=== PATIENT | female | born 1970 | race American Indian/Alaskan Native ===

== ENCOUNTER 2016-09-08 08:32 | Outpatient (CLI) | payer OTHER ==
--- NOTE | 2016-09-08 15:54 | Mammography Report ---
BILATERAL DIGITAL SCREENING MAMMOGRAM with CAD: 09/08/16 08:32:00 CLINICAL: Routine screening.History of a benign left biopsy. COMPARISON:11/28/11 FINDINGS: The breasts are almost entirely fatty.Stable left outer mass with a biopsy clip. No new ass, architectural distortion or suspicious calcifications. IMPRESSION: No mammographic evidence of malignancy. BI-RADS CATEGORY: 2 -- Benign RECOMMENDATION: Routine mammographic screening in one year. COMMENT: Patient follow-up letters are generated by our [employer] application.
== END 2016-09-08 08:33 | disposition home or self-care (01) ==
LOC: MAMMO 08:32
DX: Z12.31 Encounter for screening mammogram for malignant neoplasm of breast (principal)
CPT/HCPCS: 77067; G0202

== ENCOUNTER 2016-10-16 07:11 | Day surgery (SDC) | payer OTHER ==
[2016-10-16] MEDS ORDERED: DIPRIVAN 10 MG/ML IV ONE ×2 (07:37)
[2016-10-16] MEDS ORDERED: NACL 0.9% 1000 ML 1,000 ML IV SCH (08:00)
--- NOTE | 2016-10-16 08:05 | Anesthesia Consultation ---
Anesthesia Consult and Med Hx Date of service: 10/16/16 - Airway Anesthetic Teeth Evaluation: Caps (bottom left) ROM Head & Neck: Adequate Mental/Hyoid Distance: Adequate Mallampati Class: Class II Intubation Access Assessment: Probably Good - Pulmonary Exam CTA: Yes - Cardiac Exam Cardiac Exam: RRR - Pre-Operative Health Status ASA Pre-Surgery Classification: ASA2 Proposed Anesthetic Plan: MAC - Pulmonary Hx Smoking: Yes (2-3 black and milds) - Cardiovascular System Hx Hypertension: Yes - Gastrointestinal Hx Gastroesophageal Reflux Disease: Yes - Endocrine Hx Insulin Dependent Diabetes: No - Hematic Hx Anemia: No Hx Sickle Cell Disease: No - Other Systems Hx Alcohol Use: No Hx Substance Use: No Hx Cancer: No Hx Obesity: No
--- NOTE | 2016-10-16 08:05 | Anesthesia Day of Surgery ---
Anesthesia Day of Surgery - Day of Surgery Patient Examined: Yes Patient H&P Reviewed: Yes Patient is NPO: Yes
[2016-10-16] MEDS ORDERED: WATER FOR IRRIG STERILE IR ONE (08:15)
[2016-10-16] MEDS ORDERED: ROBINUL ONE (09:14)
[2016-10-16] MEDS ORDERED: XYLOCAINE MPF 2% ONE (09:14)
--- NOTE | 2016-10-16 09:44 | Operative Report ---
Operative Report Operative Report: Date of procedure: 10/16/2016 Procedure: Esophagogastroduodenoscopy with multiple mucosal biopsies. Attending physician: Victoriano Lam MD Soil Science Professor: Victoriano Lam MD Indication: Patient is a 46-year-old female who presented with a history of epigastric pain indigestion and heartburn. Also has a history of dysphagia. An upper endoscopy is done to assess patient so that treatment may be directed based on the findings. Consent: Informed consent was obtained after advising the patient and family regarding nature of this procedure, its indications, potential benefits as well as possible complications including but not limited to bleeding perforation and adverse reaction to medication, infection as well as other cardiopulmonary complications. An informed written and verbal consent was then obtained after due opportunity was provided for questions and answers. Monitoring: Patient was monitored continuously with pulse oximetry and electrocardiographic recordings as well as blood pressure recordings. Vital signs remained stable throughout this procedure with no untoward events. Preoperative assessment: Patient was assessed immediately prior to this procedure for capacity to tolerate monitored anesthesia care and moderate sedation as well as general anesthesia. Patient's ASA classification is 2, Mallampati class is 2, Hyomental distance is 3. Instrument: Precysen video endoscope Medications: Propofol given intravenously in divided doses. For details please refer to anesthesia records. Description of procedure: Patient was placed in the left lateral decubitus position after achieving sedation, the endoscope was introduced into the esophagus under direct vision. It was then advanced beyond the esophagus into the stomach and then beyond the stomach into the duodenum and to the second portion of the duodenum. It was subsequently withdrawn with careful inspection of all mucosal surfaces with the following findings. Findings: Patient had mild erosive esophagitis involving the distal esophagus. The Z line was irregular. There was a 1-2 cm sliding hiatal hernia seen on entry into the stomach. There was erythema and edema seen in the gastric antrum and body with surrounding erosions. Biopsies were obtained from the gastric antrum to rule out gastritis. The duodenum was normal to second portion. Impression: Mild erosive esophagitis. Mucosal changes suggestive of gastritis. Hiatal hernia Plan: Continue treatment with proton pump inhibitors. Follow antireflux measures. Additional decisions may be made depending on the pathology report.
[2016-10-16 10:03] VITALS: BP 104/73
--- NOTE | 2016-10-16 10:23 | Discharge Summary ---
Short Stay Discharge Plan Activity: advance as tolerated Weight Bearing Status: Weight Bear as Tolerated Diet: regular Additional Instructions: Post Sedation D/C Instructions When you return home you may resume your regular diet unless otherwise directed. -Go directly home from the hospital and rest quietly. You may resume normal activities tomorrow. -Do NOT drive, return to work, operate any machinery or make any important personal or business decisions today. -Do NOT drink any alcohol or take nerve or sleeping drugs. They add to the effects of the medicine still present in your body. Follow up with Dr. Lam to obtain pathology results and treatment plan. Continue protein pump inhibitors and anti-reflux measures. Follow up with: KAMAR COCHRAN [Primary Care Provider] - 7 Days
--- NOTE | 2016-10-16 10:36 | Post Anesthesia Evaluation ---
- Post Anesthesia Evaluation Patient Participated: Yes Airway Patent: Yes Stable Respiratory Function: Yes Nausea/Vomiting: No Temp > 96.8F: Yes Pain Manageable: Yes Adequeate Hydration: Yes Anesthesia Complications: No Block Receding Appropriately: Not Applicable Patient on Ventilator: No
== END 2016-10-16 07:12 | disposition home or self-care (01) ==
LOC: GIO 07:11
PROVIDERS: ATTEND Internal Medicine Gastroenterology
DX: K20.9 Esophagitis, unspecified (principal); K44.1 Diaphragmatic hernia with gangrene; I10 Essential (primary) hypertension; F17.210 Nicotine dependence, cigarettes, uncomplicated; K31.89 Other diseases of stomach and duodenum
CPT/HCPCS: 43239; 81025; 88305; 88342; J2704; J7030

== ENCOUNTER 2016-10-20 10:56 | Day surgery (SDC) | payer OTHER ==
[2016-10-20] MEDS ORDERED: NACL 0.9% 1000 ML 1,000 ML IV SCH (13:00)
[2016-10-20] MEDS ORDERED: DIPRIVAN 10 MG/ML IV ONE ×2 (18:24→18:47)
--- NOTE | 2016-10-20 18:50 | Operative Report ---
Operative Report Operative Report: Date of procedure: 10/20/2016 Procedure: Colonoscopy Attending physician: Victoriano Lam MD Process Inspector: Victoriano Lam MD Indication: Patient is a 46-year-old female who presented for colonoscopic assessment because of family history of colon cancer. Her father had colon cancer. This procedure is done to evaluate patient so that treatment may be directed based on the findings. Consent: Informed consent was obtained after advising the patient and family regarding nature of this procedure, its indications, potential benefits as well as possible complications including but not limited to bleeding perforation and adverse reaction to medication, infection as well as other cardiopulmonary complications. An informed written and verbal consent was then obtained after due opportunity was provided for questions and answers. Monitoring: Patient was monitored continuously with pulse oximetry and electrocardiographic recordings as well as blood pressure recordings. Vital signs remained stable throughout this procedure with no untoward events. Preoperative assessment: Patient was assessed immediately prior to this procedure for capacity to tolerate monitored anesthesia care and moderate sedation as well as general anesthesia. Patient's ASA classification is 2, Mallampati class is 2, Hyomental distance is 3. Instrument: Vimblyn videocolonoscope Medications: Propofol given intravenously in divided doses for details please refer to anesthesia records. Description of procedure: Patient was placed in the left lateral decubitus position after achieving sedation, a digital rectal examination was performed following which the colonoscope was introduced into the anal verge and advanced to the cecum which was identified by the cecal valve, the appendiceal orifice, as well as by the cecal strap and direct transillumination. The colonoscope was subsequently withdrawn with careful inspection of all mucosal surfaces. Patient tolerated this procedure well and was subsequently taken to the recovery room. The following findings were noted. Findings: Patient had liquid stool in sections of the colon which is fairly easily irrigated. There were no mucosal abnormalities seen. On the retroflex view at the anal verge, patient had internal hemorrhoids. Impression: Internal hemorrhoids. Retained stool. Plan: High-fiber diet. Repeat colonoscopy in 5 years because of family history of colon cancer.
--- NOTE | 2016-10-20 18:51 | Discharge Summary ---
Short Stay Discharge Plan Activity: advance as tolerated Weight Bearing Status: Weight Bear as Tolerated Diet: regular Follow up with: KAMAR COCHRAN [Primary Care Provider] - 7 Days
[2016-10-20 19:26] VITALS: BP 110/78
--- NOTE | 2016-10-20 19:34 | Anesthesia Consultation ---
Anesthesia Consult and Med Hx Date of service: 10/20/16 - Airway Anesthetic Teeth Evaluation: Good ROM Head & Neck: Adequate Mental/Hyoid Distance: Adequate - Pre-Operative Health Status ASA Pre-Surgery Classification: ASA2 Proposed Anesthetic Plan: MAC - Pulmonary Hx Smoking: Yes (2-3 black and milds) - Cardiovascular System Hx Hypertension: Yes - Gastrointestinal Hx Gastroesophageal Reflux Disease: Yes - Endocrine Hx Insulin Dependent Diabetes: No - Hematic Hx Anemia: Yes Hx Sickle Cell Disease: No - Other Systems Hx Alcohol Use: No Hx Substance Use: No Hx Cancer: No Hx Obesity: No - Additional Comments Anesthesia Medical History Comments: NAC
== END 2016-10-20 10:57 | disposition home or self-care (01) ==
LOC: GIO 10:56
PROVIDERS: ATTEND Internal Medicine Gastroenterology
DX: K64.8 Other hemorrhoids (principal); M19.90 Unspecified osteoarthritis, unspecified site; I10 Essential (primary) hypertension; F17.210 Nicotine dependence, cigarettes, uncomplicated; Z79.899 Other long term (current) drug therapy; Z72.89 Other problems related to lifestyle; Z80.0 Family history of malignant neoplasm of digestive organs
CPT/HCPCS: 45378; 81025; J2704; J7030

== ENCOUNTER 2017-07-07 10:42 | Inpatient (IN) | payer OTHER ==
[2017-07-06 09:58] LABS: Basophils % (Auto) 0.5 % (0.0-1.8); Eosinophils % (Auto) 4.1 % (0.0-4.3); Hematocrit 44.6 % (30.3-42.9); Hemoglobin 14.9 gm/dl (10.1-14.3); Mean Corpuscular HGB Conc 33 % (30-34); Mean Corpuscular Hemoglobin 28 pg (28-32); Mean Corpuscular Volume 82 fl (79-97); Platelet Count 299 K/mm3 (140-440); Red Blood Count 5.43 M/mm3 (3.65-5.03); Red Cell Distribution Width 14.5 % (13.2-15.2)
[2017-07-06 10:17] LABS: Anion Gap 20 mmol/L; BUN/Creatinine Ratio 18; Blood Urea Nitrogen 14 mg/dL (7-17); Calcium 9.1 mg/dL (8.4-10.2); Carbon Dioxide 22 mmol/L (22-30); Chloride 101.2 mmol/L (98-107); Glucose 93 mg/dL (65-100); Potassium 4.5 mmol/L (3.6-5.0); Sodium 139 mmol/L (137-145)
--- NOTE | 2017-07-06 10:21 | Anesthesia Consultation ---
Anesthesia Consult and Med Hx Date of service: 07/06/17 - Airway Anesthetic Teeth Evaluation: Good ROM Head & Neck: Adequate Mental/Hyoid Distance: Adequate Mallampati Class: Class II Intubation Access Assessment: Good - Pulmonary Exam CTA: Yes - Cardiac Exam Cardiac Exam: RRR - Pre-Operative Health Status ASA Pre-Surgery Classification: ASA2 Proposed Anesthetic Plan: General Nerve Block: TAP - Pulmonary Hx Smoking: Yes ("social" smoker) - Cardiovascular System Hx Hypertension: Yes - Central Nervous System Hx Psychiatric Problems: Yes - Gastrointestinal Hx Gastroesophageal Reflux Disease: Yes - Endocrine Hx Insulin Dependent Diabetes: No - Hematic Hx Anemia: Yes Hx Sickle Cell Disease: No - Other Systems Hx Alcohol Use: Yes (occas) Hx Substance Use: No Hx Cancer: No Hx Obesity: No
[2017-07-07] MEDS ORDERED: VERSED IV NR (11:00)
[2017-07-07] MEDS ORDERED: SUBLIMAZE IV ONE (11:01)
[2017-07-07] MEDS ORDERED: LACTATED RINGERS 1,000 ML ONE ×3 (11:52→15:17)
[2017-07-07] MEDS ORDERED: TRANSDERM-SCOP TD NR (12:00)
[2017-07-07] MEDS ORDERED: PEPCID PO NR (12:00)
[2017-07-07] MEDS ORDERED: NEURONTIN PO NR (12:00)
--- NOTE | 2017-07-07 12:21 | History and Physical Report ---
History of Present Illness Date of examination: 07/07/17 Chief complaint: Symptomatic uterine fibroids History of present illness: Pt is a 46yo BF LMP 06/18/17 presents for surgical evaluation and treatment of heavy irregular menstrual cycles thought to be due to uterine fibroids. Pelvic u/s showed an enlarged uterus 14.0 x 8.2 x 7.3cm with multiple fibroids. Pt DOES NOT desire future fertility and requests a Robotic Assisted Total Hysterectomy with Ovarian conservation. Past History Past Medical History: no pertinent history Past Surgical History: cholecystectomy, other (BTL; Bartholin cyst) [employer] History: fibroids Family/Genetic History: diabetes, heart disease, hypertension, cancer Social history: no significant social history, single Medications and Allergies Allergies Allergy/AdvReac Type Severity Reaction Status Date / Time No Known Allergies Allergy Verified 07/01/17 17:34 Home Medications Medication Instructions Recorded Confirmed Last Taken Type Ibuprofen [Ibuprofen] 800 mg PO DAILY 07/06/17 07/06/17 Unknown History Losartan Potassium [Cozaar] 100 mg PO DAILY 07/06/17 07/06/17 Unknown History Omeprazole [Omeprazole] 40 mg PO DAILY 07/06/17 07/06/17 Unknown History Phentermine HCl 37.5 mg PO DAILY 07/06/17 07/06/17 07/01/17 History Active Meds: Active Medications Celecoxib (Celebrex) 200 mg PO PREOP NR Stop: 07/07/17 13:00 Last Admin: 07/07/17 11:53 Dose: 200 mg Famotidine (Pepcid) 20 mg PO PREOP NR Stop: 07/07/17 23:59 Last Admin: 07/07/17 11:53 Dose: 20 mg Gabapentin (Neurontin) 600 mg PO PREOP NR Stop: 07/07/17 23:59 Last Admin: 07/07/17 11:53 Dose: 600 mg Lactated Ringer's (Lactated Ringers) 1,000 mls @ 100 mls/hr IV DIRECT EVANS Cefazolin Sodium (Ancef/Sterile Water 2 Gm/20 Ml) 2 gm in 20 mls @ 80 mls/hr IV PREOP NR PRN Reason: Protocol Midazolam HCl (Versed) 2 mg IV PREOP NR Stop: 07/07/17 23:59 Scopolamine (Transderm-Scop) 1 each TD PREOP NR Stop: 07/10/17 11:59 Last Admin: 07/07/17 11:54 Dose: 1 each Review of Systems All systems: negative - Vital Signs Vital signs: Vital Signs Temp Pulse Resp BP 98.6 F 84 16 110/80 07/06/17 09:20 07/06/17 09:20 07/06/17 09:20 07/06/17 09:20 Temp Pulse Resp BP Pulse Ox 98.6 F 84 20 110/80 07/06/17 09:20 07/06/17 09:20 07/07/17 11:53 07/06/17 09:20 - Physical Exam Breasts: Positive: deferred Cardiovascular: Regular rate Lungs: Positive: Clear to auscultation Abdomen: Positive: normal appearance Genitourinary (Female): Positive: normal external genitalia Vagina: Positive: normal moisture Uterus: Positive: enlarged Extremities: Positive: normal Results Result Diagrams: 07/06/17 09:50 07/06/17 09:50 All other labs normal. Ultrasound: report reviewed Assessment and Plan - Patient Problems (1) Fibroid uterus Onset Date: 07/07/17 Current Visit: Yes Status: Acute Qualifiers: Uterine leiomyoma location: intramural and subserous Qualified Code(s): D25.1 - Intramural leiomyoma of uterus; D25.2 - Subserosal leiomyoma of uterus; D25.2 - Subserosal leiomyoma of uterus Plan to address problem: A: Symptomatic fibroid uterus Menorrhagia P: Admit for a Robotic Assisted Total Hysterectomy with Bilateral Salpingectomy (2) Menorrhagia with irregular cycle Onset Date: 07/07/17 Current Visit: Yes Status: Acute
[2017-07-07] MEDS ORDERED: XYLOCAINE MPF 2% ONE (12:44)
[2017-07-07] MEDS ORDERED: ZEMURON IV ONE (12:44)
[2017-07-07] MEDS ORDERED: DIPRIVAN 10 MG/ML IV ONE (12:47)
[2017-07-07] MEDS ORDERED: XYLOCAINE 1% 20 mL ONE (12:47)
[2017-07-07] MEDS ORDERED: DECADRON ONE ×2 (12:47→15:07)
[2017-07-07] MEDS ORDERED: MARCAINE 0.5% 0 ML INFILTRATI ONE (12:47)
[2017-07-07] MEDS ORDERED: CLONIDINE 1,000 MCG/10 ML VIAL EP ONE (12:47)
[2017-07-07] MEDS ORDERED: DILAUDID ONE ×2 (12:48→18:41)
[2017-07-07] MEDS ORDERED: NEOSPORIN GU IR ONE ×2 (12:56→15:06)
--- NOTE | 2017-07-07 12:56 | Anesthesia Day of Surgery ---
Anesthesia Day of Surgery - Day of Surgery Patient Examined: Yes Patient H&P Reviewed: Yes Patient is NPO: Yes
[2017-07-07] MEDS ORDERED: ANCEF/STERILE WATER 2 GM/20 ML 2 GM/20 ML SYRINGE IV NR (13:00)
[2017-07-07] MEDS ORDERED: ePHEDrine SULFATE ONE ×2 (14:45→16:08)
[2017-07-07] MEDS ORDERED: NACL 0.9% IR ONE ×2 (15:06→15:07)
[2017-07-07] MEDS ORDERED: ZOFRAN ONE (15:07)
[2017-07-07] MEDS ORDERED: ROBINUL ONE ×2 (15:13→15:14)
[2017-07-07] MEDS ORDERED: NEOSTIGMINE ONE (15:13)
[2017-07-07] MEDS ORDERED: NACL 0.9% 1000 ML 0 ML ONE (15:15)
[2017-07-07] MEDS ORDERED: MILK OF MAGNESIA PO PRN (15:37)
[2017-07-07] MEDS ORDERED: ZOFRAN IV PRN (15:37)
[2017-07-07] MEDS ORDERED: PERCOCET 5/325 PO PRN (15:37)
[2017-07-07] MEDS ORDERED: PHENERGAN PR PRN (15:37)
[2017-07-07] MEDS ORDERED: TYLENOL PO PRN (15:37)
[2017-07-07] MEDS ORDERED: NARCAN 0.4 MG/1 ML IV PRN (15:37)
[2017-07-07] MEDS ORDERED: NORCO 5/325 PO PRN (15:37)
[2017-07-07] MEDS ORDERED: SODIUM CHLORIDE FLUSH SYRINGE 10 ML IV PRN (15:37)
[2017-07-07] MEDS: TORADOL IV SCH ×2 (15:50→21:40)
[2017-07-07] MEDS ORDERED: D5LR 1,000 ML IV SCH (16:00)
[2017-07-07] MEDS ORDERED: ANCEF/NS 1 GM/50 ML 1 GM/50 ML BAG IV SCH (16:00)
[2017-07-07] MEDS ORDERED: DILAUDID IV PRN (16:03)
[2017-07-07] MEDS ORDERED: NACL 0.9% 1000 ML 1,000 ML ONE (16:07)
[2017-07-07] MEDS: DILAUDID IV PRN ×2 (16:30→16:40)
[2017-07-07] MEDS ORDERED: ePHEDrine SULFATE IV PRN (17:14)
--- NOTE | 2017-07-07 17:35 | Operative Report ---
Operative Report Operative Report: Date of procedure: 07/07/2017 Pre-operative diagnosis: 1. Symptomatic fibroid uterus 2. Menorrhagia Post-operative diagnosis: Same with extensive omental adhesions Procedure name(s): 1. Robotic-assisted total hysterectomy 2. Bilateral salpingectomy 3. Lysis of extensive omental adhesions Surgeon: Fransisco Chase MD Weight Trainer: Kacie Manning SA Anesthesia: Block followed by general endotracheal intubation by Dr. Cat EBL: 100 mls Findings: A 14-16 week size multiple myomatous uterus with omental adhesions to the anterior abdominal wall. Tubes showed evidence of previous tubal ligation bilaterally, and ovaries are normal bilaterally. Procedure: After the patient's first correctly identified she was prepped and draped in the usual sterile fashion and placed in the dorsolithotomy position. The bladder was first catheterized using Villa catheter and the speculum was placed in the vagina and the anterior lip of the cervix was grasped using a single-tooth tenaculum, and the medium Vesicare cup was placed. The tenaculum and speculum was then removed from the vagina and attention was then turned to the abdomen. The skin knife was used to make a small incision approximately 5 cm above the umbilicus through which a 12 mm trocar was placed under direct visualization. After adequate amount of abdominal insufflation visualization of the pelvic organs found the uterus to be enlarged with extensive omental adhesions to anterior abdominal wall obscuring the adnexa and the tubes showed evidence of previous tubal ligation bilaterally, and both ovaries normal bilaterally. A right lateral incision was made through which a 5 mm trocar was placed under direct visualization. A right and left paramedian incision was made through which the 8 mm trochars were placed under direct visualization. The patient was then placed in steep Trendelenburg positioning and the robot was docked on the patient's left side. After all the robotic ports were connected and adequate functioning of the robotic arms were tested the surgeon then proceeded to the console to begin the hysterectomy. First the omental adhesions were taken down using both sharp and blunt dissection, then the left round ligament was grasped, cauterized and cut, the left utero-ovarian ligaments were grasped, cauterized and cut, and the left fallopian tube also grasped, cauterized and cut along the mesosalpinx, thus freeing the left ovary from the left pelvic sidewall. The same procedure was performed on the right. The right round ligament was grasped, cauterized and cut, the right utero-ovarian ligaments were grasped, cauterized and cut, and the right fallopian tube also grasped, cauterized and cut along the mesosalpinx , thus freeing the right ovary from the right pelvic sidewall. The bladder flap was taken down anteriorly and the uterine vessels were grasped, cauterized and cut bilaterally. The cardinal ligaments were sequentially grasped, cauterized and cut down to the level of the uterosacral ligaments. At this time the posterior colpotomy was performed over the Vcare cup, and the cervix was circumscribed beginning posteriorly and meeting anteriorly until the cervix was freed. The cervix and uterus was then removed through the vagina and sent to pathology. The vaginal cuff was then closed using 2-0 Vloc suture in a running fashion. Irrigation was then performed and after good hemostasis was achieved the procedure was considered complete. The Tisseel sealant was then sprayed across the vaginal cuff site, and after excellent hemostasis was assured Interceed was placed across the vaginal cuff site. All instruments were then removed from the abdominal cavity. And each incision was closed using 0 Vicryl suture in a [id number] configuration on the fascia followed by 4-0 Monocryl suture in a sub-cuticular fashion on the skin. Each incision was also infiltrated using 0.5% Marcaine solution. The vaginal pack was removed. The patient tolerated the procedure well and was transported to the recovery room in stable condition.
[2017-07-07] MEDS ORDERED: MORPHINE IV ONE (21:00)
[2017-07-07] MEDS: COLACE PO SCH (21:40)
[2017-07-07] MEDS: ceFAZolin 1 GM in NACL 0.9% 20 ML IV SCH (21:40)
[2017-07-08] MEDS: TORADOL IV SCH ×2 (03:06→11:25)
[2017-07-08] MEDS: ceFAZolin 1 GM in NACL 0.9% 20 ML IV SCH (05:33)
[2017-07-08 05:48] LABS: Hematocrit 36.8 % (30.3-42.9); Hemoglobin 12.3 gm/dl (10.1-14.3)
--- NOTE | 2017-07-08 08:21 | Progress Note ---
Assessment and Plan - Patient Problems (1) Fibroid uterus Onset Date: 07/07/17 Current Visit: Yes Status: Resolved Qualifiers: Uterine leiomyoma location: intramural and subserous Qualified Code(s): D25.1 - Intramural leiomyoma of uterus; D25.2 - Subserosal leiomyoma of uterus; D25.2 - Subserosal leiomyoma of uterus (2) Menorrhagia with irregular cycle Onset Date: 07/07/17 Current Visit: Yes Status: Resolved (3) Status post robot-assisted surgical procedure Onset Date: 07/08/17 Current Visit: Yes Status: Resolved Plan to address problem: A: S/P RATH - POD #1 Doing well P: May go home today. Subjective - Subjective Date of service: 07/08/17 Principal diagnosis: s/p RATH - POD #1 Interval history: Pt is s/p a Robotic Assisted Total Hysterectomy with bilateral salpingectomy and feeling well. She is tolerating a soft diet without nausea or vomiting, ambulating and voiding without difficulty. Patient reports: appetite normal, voiding normally, pain well controlled, flatus , ambulating normally, no nauseated Objective - Vital Signs Latest vital signs: Vital Signs Temp Pulse Resp BP BP Pulse Ox 07/08/17 04:40 98.2 F 73 20 101/66 98 07/07/17 23:45 98.5 F 85 20 108/68 100 07/07/17 20:30 98.7 F 71 20 116/72 100 07/07/17 18:05 97.4 F L 82 18 129/55 07/07/17 17:32 60 17 110/71 100 07/07/17 17:15 59 L 17 97/62 100 07/07/17 17:00 59 L 18 105/63 100 07/07/17 16:45 97.4 F L 55 L 18 93/57 100 07/07/17 16:40 18 07/07/17 16:30 52 L 17 96/58 100 07/07/17 16:15 59 L 16 94/55 100 07/07/17 16:10 51 L 20 90/52 100 07/07/17 16:05 52 L 20 96/36 100 07/07/17 16:00 52 L 18 78/44 100 07/07/17 15:55 53 L 20 89/45 100 07/07/17 15:50 56 L 20 87/47 100 07/07/17 15:45 58 L 20 82/41 100 07/07/17 15:40 61 18 82/45 99 07/07/17 15:36 97.5 F L 57 L 20 89/34 97 07/07/17 13:20 65 16 99/65 100 07/07/17 13:15 71 16 99/56 100 07/07/17 13:10 63 16 102/59 100 07/07/17 13:05 67 16 100 07/07/17 13:00 74 16 102/61 100 07/07/17 12:55 71 16 103/62 100 07/07/17 12:45 20 07/07/17 11:53 20 07/07/17 11:18 98.2 F 62 20 92/60 100 Intake and Output 07/07/17 07/08/17 07/08/17 22:59 06:59 14:59 Intake Total 1200 360 Output Total 330 2200 Balance 870 -1840 Intake: IV 1200 Oral 360 Output: Urine 330 2200 2-way Urethral 65 Indwelling Catheter 2200 Other: Total, Intake Amount 120 Total, Output Amount 1400 Voiding Method Indwelling Catheter - Exam Breasts: Present: deferred Cardiovascular: Present: Regular rate Lungs: Present: Clear to auscultation Abdomen: Present: normal appearance, soft Extremities: Present: normal Incision: Present: normal, dry, intact - Labs Labs: Laboratory Tests 07/06/17 07/06/17 07/06/17 09:50 09:50 09:50 WBC 6.0 RBC 5.43 H Hgb 14.9 H Hct 44.6 H MCV 82 MCH 28 MCHC 33 RDW 14.5 Plt Count 299 Lymph % (Auto) 36.3 H [place] % (Auto) 13.4 H Eos % (Auto) 4.1 Baso % (Auto) 0.5 Lymph # 2.2 [place] # 0.8 Eos # 0.2 Baso # 0.0 Seg Neutrophils % 45.7 Seg Neutrophils # 2.7 Sodium 139 Potassium 4.5 Chloride 101.2 Carbon Dioxide 22 Anion Gap 20 BUN 14 Creatinine 0.8 Estimated GFR > 60 BUN/Creatinine Ratio 18 Glucose 93 Calcium 9.1 HCG, Qual Negative Blood Type Antibody Screen 07/06/17 07/08/17 09:50 05:22 WBC RBC Hgb 12.3 Hct 36.8 D MCV MCH MCHC RDW Plt Count Lymph % (Auto) [place] % (Auto) Eos % (Auto) Baso % (Auto) Lymph # [place] # Eos # Baso # Seg Neutrophils % Seg Neutrophils # Sodium Potassium Chloride Carbon Dioxide Anion Gap BUN Creatinine Estimated GFR BUN/Creatinine Ratio Glucose Calcium HCG, Qual Blood Type B POSITIVE Antibody Screen Negative
--- NOTE | 2017-07-08 08:44 | Discharge Summary ---
Providers - Providers Date of Admission: 07/07/17 15:37 Date of discharge: 07/08/17 Attending physician: JOHNNIE OROZCO Primary care physician: KAMAR COCHRAN Hospitalization Reason for admission: other (Symptomatic fibroid uterus; Menorrhagia) Procedure: other (Robotic Assisted Total Hysterectomy with Bilateral Salpingectomy) Incision: normal, dry, intact Other procedures: none complications: none Discharge diagnosis: other (s/p RATH) Hospital course: Pt is a 46yo BF LMP 06/18/17 who presented for surgical evaluation and treatment of heavy irregular menstrual cycles thought to be due to uterine fibroids. Pelvic u/s showed an enlarged uterus 14.0 x 8.2 x 7.3cm with multiple fibroids. She underwent an uncomplicated Robotic Assisted Total Hysterectomy with Bilateral Salpingectomy, and by POD #1 she was tolerating a reg diet without nausea or vomiting, ambulating and voiding without difficulty. She was therefore discharged to home on POD #1 in stable condition. Condition at discharge: Good Disposition: DC-01 TO HOME OR SELFCARE - Discharge Diagnoses (1) Fibroid uterus Status: Resolved Qualifiers: Uterine leiomyoma location: intramural and subserous Qualified Code(s): D25.1 - Intramural leiomyoma of uterus; D25.2 - Subserosal leiomyoma of uterus; D25.2 - Subserosal leiomyoma of uterus (2) Menorrhagia with irregular cycle Status: Resolved Plan - Discharge Medications Prescriptions: HYDROcodone/APAP 5-325 [[place] 5-325 mg TAB] 1 each PO Q6HR PRN #30 tablet PRN Reason: Pain, Moderate (4-6) Ibuprofen 800 mg PO Q8HR #30 tablet - Provider Discharge Summary Activity: routine, no sex for 6 weeks, no heavy lifting 4 weeks, no strenuous exercise Diet: routine Instructions: routine Additional instructions: [] Smoking cessation referral if applicable(refer to patient education folder for contact #) [] Refer to [facility] Booklet Call your doctor immediately for: * Fever > 100.5 * Heavy vaginal bleeding ( >1 pad per hour) * Severe persistent headache * Shortness of breath * Reddened, hot, painful area to leg or breast * Drainage or odor from incision. * Keep incision clean and dry at all times and follow doctor's instructions regarding bathing/showering - Follow up plan Follow up: KAMAR COCHRAN [Primary Care Provider] - 7 Days JOHNNIE OROZCO MD [Staff Physician] - 14 Days
[2017-07-08 09:36] VITALS: BP 100/64
[2017-07-08] MEDS ORDERED: LACTATED RINGERS 1,000 ML IV SCH (11:00)
[2017-07-08] MEDS: COLACE PO SCH (11:25)
--- NOTE | 2017-07-08 14:50 | Progress Note ---
Subjective Date of service: 07/08/17 Principal diagnosis: s/p RATH - POD #1 Interval history: 1st POD after robotic hysterectomy Patient is in the bed, comfortable. Pain is well controlled with pain meds. Ambulated well. No nausea or vomiting. No anesthesia complications. Being discharged by the surgeon. Objective - Constitutional Vitals: Vital Signs - 12hr 07/08/17 07/08/17 07/08/17 04:40 05:19 09:07 Temperature 98.2 F 99.0 F Pulse Rate 73 68 70 Respiratory 20 18 Rate Blood Pressure 101/66 100/64 Blood Pressure 101/66 [Right] O2 Sat by Pulse 98 99 100 Oximetry - Labs CBC & Chem 7: 07/08/17 05:22 07/06/17 09:50
== END 2017-07-08 13:30 | disposition home or self-care (01) | DRG 742 ==
LOC: OR 10:42 → OB 15:37
PROVIDERS: ADMIT Obstetrics & Gynecology; ATTEND Obstetrics & Gynecology
PROC: 0UT9FZZ Resection of Uterus, Via Natural or Artificial Opening With Percutaneous Endoscopic Assistance (ICD-10-PCS; principal; 2017-07-07)
PROC: 0UT74ZZ Resection of Bilateral Fallopian Tubes, Percutaneous Endoscopic Approach (ICD-10-PCS; 2017-07-07)
PROC: 8E0W4CZ Robotic Assisted Procedure of Trunk Region, Percutaneous Endoscopic Approach (ICD-10-PCS; 2017-07-07)
PROC: 0DNU4ZZ Release Omentum, Percutaneous Endoscopic Approach (ICD-10-PCS; 2017-07-07)
DX: D25.1 Intramural leiomyoma of uterus (principal); R71.0 Precipitous drop in hematocrit; N92.0 Excessive and frequent menstruation with regular cycle; F41.9 Anxiety disorder, unspecified; F17.200 Nicotine dependence, unspecified, uncomplicated; I10 Essential (primary) hypertension; K21.9 Gastro-esophageal reflux disease without esophagitis; K66.0 Peritoneal adhesions (postprocedural) (postinfection); Z90.49 Acquired absence of other specified parts of digestive tract; Z83.3 Family history of diabetes mellitus; Z82.49 Family history of ischemic heart disease and other diseases of the circulatory system; Z80.9 Family history of malignant neoplasm, unspecified; Z79.899 Other long term (current) drug therapy; Z72.89 Other problems related to lifestyle
CPT/HCPCS: 36415; 64450; 80048; 84703; 85014; 85018; 85025; 86850; 86900; 86901; 88302; 88305; 88307; A4217; C1765; C9250; J0690; J0735; J1100; J1170; J1885; J2250; J2270; J2405; J2704; J2710; J3010; J7030; J7120; J7121

== ENCOUNTER 2018-08-17 07:13 | Emergency (ER) | payer OTHER ==
[2018-08-17 07:21] VITALS: BP 150/92
[2018-08-17] MEDS ORDERED: DECADRON IM ONE (08:19)
[2018-08-17] MEDS ORDERED: TORADOL IM ONE (08:19)
[2018-08-17] MEDS ORDERED: ZOFRAN ODT PO ONE (08:19)
--- NOTE | 2018-08-17 08:24 | Emergency Department Report ---
Minor Respiratory - HPI Chief Complaint: Headache Stated Complaint: HEADACHE,HANDS SWELLING Time Seen by Provider: 08/17/18 07:43 Duration: 5 Days Pain Location: Other Severity: moderate Minor Respiratory: Yes Rhinorrhea, Yes Sore Throat, Yes Able to Tolerate Fluids, Yes Ear Pain, No Cough, No Sick Contacts, No Hemoptysis, No Chest Pain, No Shortness of Breath, No Fever Other History: is a 48-year-old -[place] female who comes to the ER today with a 3 week history of waxing and waning migraine headaches. She has had some dizziness. She also reports light sensitivity. She is alert and oriented with no focal deficit. She has a history of migraines and takes Motrin for them. She is followed by [facility]. She has an appointment on Thursday with them. Home medications are losartan, omeprazole, Motrin, folic acid. ED Review of Systems ROS: Stated complaint: HEADACHE,HANDS SWELLING Other details as noted in HPI Comment: All other systems reviewed and negative Constitutional: denies: chills, fever Eyes: denies: eye pain ENT: as per HPI, ear pain, throat pain, congestion Respiratory: denies: cough, orthopnea Cardiovascular: denies: dyspnea on exertion Endocrine: denies: flushing Gastrointestinal: denies: nausea Genitourinary: denies: urgency Musculoskeletal: denies: back pain Skin: denies: lesions Neurological: as per HPI, headache, paresthesias (CHRONIC). denies: weakness, numbness Psychiatric: anxiety Hematological/Lymphatic: denies: easy bleeding ED Past Medical Hx - Past Medical History Previous Medical History?: Yes Hx Hypertension: Yes Hx GERD: Yes Hx Sickle Cell Disease: No Hx Arthritis: Yes (hands, shoulders, knees) Hx Headaches / Migraines: Yes (migraines) Hx Psychiatric Treatment: Yes (depression) - Surgical History Past Surgical History?: Yes Hx Cholecystectomy: Yes Additional Surgical History: tubal. hysterectomy 07/19 - Family History Family history: no significant - Social History Smoking Status: Current Every Day Smoker Substance Use Type: Alcohol - Medications Home Medications: Home Medications Medication Instructions Recorded Confirmed Last Taken Type Losartan Potassium [Cozaar] 100 mg PO DAILY 07/06/17 07/06/17 Unknown History Omeprazole 40 mg PO DAILY 07/06/17 07/06/17 Unknown History Ibuprofen 800 mg PO Q8HR #30 tablet 07/08/17 Unknown Rx Amoxicillin [Trimox CAP] 500 mg PO BID #20 capsule 08/17/18 Unknown Rx Fluticasone [Flonase] 1 spray NS QDAY #1 bottle 08/17/18 Unknown Rx predniSONE [Deltasone] 20 mg PO DAILY #5 tablet 08/17/18 Unknown Rx Minor Respiratory Exam - Exam General: Vital signs noted. No distress. Alert and acting appropriately. HEENT: Yes Pharyngeal Erythema, Yes Moist Mucous Membranes, Yes Frontal Tenderness, No Pharyngeal Exudates, No Rhinorrhea, No Conjuctival Injection, No Maxillary Tenderness Ear: Neither TM Bulge, Neither TM Erythema, Neither EAC Pain, Neither EAC Discharge Neck: Yes Supple, No Adenopathy Lungs: Yes Good Air Exchange, No Wheezes, No Ronchi, No Stridor, No Cough, No Labored Respirations, No Retractions, No Use of Accessory Muscles, No Other Abnormal Lung Sounds Heart: Yes Regular, No Murmur Abdomen: Yes Normal Bowel Sounds, No Tenderness, No Peritoneal Signs Skin: No Rash, No Edema Neurologic: Alert and oriented, no deficits. Musculoskeletal: Unremarkable. ED Course Vital Signs 08/17/18 07:17 Temperature 97.9 F Pulse Rate 86 Respiratory 20 Rate Blood Pressure 150/92 O2 Sat by Pulse 96 Oximetry ED Medical Decision Making - EKG Data EKG shows normal: sinus rhythm Rate: normal - EKG Data When compared to previous EKG there are: no significant change Interpretation: no acute changes - Medical Decision Making SINUS TENDERNESS NASAL CONGESTION NO FEVER A/C MIGRAINE HX HAS PCP APPNT THURSDAY NO FOCAL NEURO DEF HEADACHE FOR 3 W- HAS WORKED EVERY DAY NO N/V/D NO PHOTOPHOBIA MIGRAINE BEING TRIGGERED LIKELY BY SINUS INFECTION MEDICATED DC HOME WITH DC POC - Differential Diagnosis RO LIFE THREATENING CAUSE OF HEADACHE Critical care attestation.: If time is entered above; I have spent that time in minutes in the direct care of this critically ill patient, excluding procedure time. ED Disposition Clinical Impression: Sinusitis, URTI (acute upper respiratory infection), Migraine Disposition: DC-01 TO HOME OR SELFCARE Is pt being admited?: No Does the pt Need Aspirin: No Condition: Stable Instructions: Sinusitis (ED), Migraine Headache (ED) Additional Instructions: REST HYDRATE WELL WITH WATER MEDS ORDERED TODAY CONTINUE HOME MEDS DEC GOODY POWDER AND ASPIRIN MEDS- IN EXCESS THEY WILL AGGRAVATE YOUR GERD FOLLOW UP WITH [facility] ON THURSDAY PLANNED Prescriptions: Amoxicillin [Trimox CAP] 500 mg PO BID #20 capsule Fluticasone [Flonase] 1 spray NS QDAY #1 bottle predniSONE [Deltasone] 20 mg PO DAILY #5 tablet Referrals: [facility] [Other] - 3-5 Days Forms: Work/School Release Form(ED) Time of Disposition: 08:22
== END 2018-08-17 08:42 | disposition home or self-care (01) ==
LOC: ED 07:13
DX: G43.909 Migraine, unspecified, not intractable, without status migrainosus (principal); J06.9 Acute upper respiratory infection, unspecified; J32.1 Chronic frontal sinusitis; I10 Essential (primary) hypertension; K21.9 Gastro-esophageal reflux disease without esophagitis; M19.90 Unspecified osteoarthritis, unspecified site; F17.200 Nicotine dependence, unspecified, uncomplicated; Z98.51 Tubal ligation status; Z90.710 Acquired absence of both cervix and uterus
CPT/HCPCS: 93005; 93010; 96372; 99282; J1100; J1885; Q0162

== ENCOUNTER 2018-09-24 04:15 | Emergency (ER) | payer OTHER ==
[2018-09-24 04:28] VITALS: BP 133/79
[2018-09-24] MEDS ORDERED: AUGMENTIN 875 MG PO ONE (05:40)
[2018-09-24] MEDS ORDERED: IBUPROFEN PO ONE (05:40)
--- NOTE | 2018-09-24 06:18 | Emergency Department Report ---
- General Chief Complaint: Upper Respiratory Infection Stated Complaint: COUGH SNEEZING BODY ACHES DIARRHEA Time Seen by Provider: 09/24/18 05:40 Source: patient Mode of arrival: Ambulatory Limitations: No Limitations - History of Present Illness Initial Comments: pt is a 48 y/o AAF with hx of recurrent sinusitis, who presents for fever cough sinus pain pressure post nasal drip and diarrhea x 3 days , diarrhea resolve but fever and sinus pain remain, symptoms are exacerbated by movement and position, pain is relieved by nothing tried, pt denies n/v no cp on sob no diaphoresis MD Complaint: fever, cough, rhinorrhea, nasal congestion, sinus pain Onset/Timin -: days(s) Severity: moderate Severity scale (0 -10): 5 Quality: sharp, other (pressure ) Consistency: constant Improves With: rest Worsens With: activity Context: sick contacts Associated Symptoms: fever, chills, headache, rhinorrhea, nasal congestion, cough, diarrhea, ear pain Treatments Prior to Arrival: none - Related Data Home Medications Medication Instructions Recorded Confirmed Last Taken Losartan Potassium [Cozaar] 100 mg PO DAILY 07/06/17 07/06/17 Unknown Omeprazole 40 mg PO DAILY 07/06/17 07/06/17 Unknown Previous Rx's Medication Instructions Recorded Last Taken Type Ibuprofen 800 mg PO Q8HR #30 tablet 07/08/17 Unknown Rx Amoxicillin [Trimox CAP] 500 mg PO BID #20 capsule 08/17/18 Unknown Rx Fluticasone [Flonase] 1 spray NS QDAY #1 bottle 08/17/18 Unknown Rx predniSONE [Deltasone] 20 mg PO DAILY #5 tablet 08/17/18 Unknown Rx Amoxicillin/Potassium Clav 1 each PO BID 10 Days #20 tablet 09/24/18 Unknown Rx [Augmentin 875-125 Tablet] Fluticasone [Flonase] 1 spray NS QDAY #1 bottle 09/24/18 Unknown Rx Ibuprofen 800 mg PO TID PRN #30 tablet 09/24/18 Unknown Rx diphenhydrAMINE [Benadryl CAP] 25 mg PO Q6HR PRN #30 capsule 09/24/18 Unknown Rx Allergies Allergy/AdvReac Type Severity Reaction Status Date / Time No Known Allergies Allergy Verified 07/01/17 17:34 ED Review of Systems ROS: Stated complaint: COUGH SNEEZING BODY ACHES DIARRHEA Other details as noted in HPI Constitutional: chills, fever Eyes: denies: eye pain, eye discharge, vision change ENT: ear pain, congestion Respiratory: cough Cardiovascular: denies: chest pain, palpitations Endocrine: no symptoms reported Gastrointestinal: diarrhea Genitourinary: denies: urgency, dysuria, discharge Musculoskeletal: denies: back pain, joint swelling, arthralgia Skin: denies: rash, lesions Neurological: headache. denies: weakness, paresthesias Psychiatric: denies: anxiety, depression Hematological/Lymphatic: denies: easy bleeding, easy bruising ED Past Medical Hx - Past Medical History Hx Hypertension: Yes Hx GERD: Yes Hx Sickle Cell Disease: No Hx Arthritis: Yes (hands, shoulders, knees) Hx Headaches / Migraines: Yes (migraines) Hx Psychiatric Treatment: Yes (depression) - Surgical History Hx Cholecystectomy: Yes Additional Surgical History: tubal. hysterectomy 07/19 - Social History Smoking Status: Current Every Day Smoker Substance Use Type: None - Medications Home Medications: Home Medications Medication Instructions Recorded Confirmed Last Taken Type Losartan Potassium [Cozaar] 100 mg PO DAILY 07/06/17 07/06/17 Unknown History Omeprazole 40 mg PO DAILY 07/06/17 07/06/17 Unknown History Ibuprofen 800 mg PO Q8HR #30 tablet 07/08/17 Unknown Rx Amoxicillin [Trimox CAP] 500 mg PO BID #20 capsule 08/17/18 Unknown Rx Fluticasone [Flonase] 1 spray NS QDAY #1 bottle 08/17/18 Unknown Rx predniSONE [Deltasone] 20 mg PO DAILY #5 tablet 08/17/18 Unknown Rx Amoxicillin/Potassium Clav 1 each PO BID 10 Days #20 tablet 09/24/18 Unknown Rx [Augmentin 875-125 Tablet] Fluticasone [Flonase] 1 spray NS QDAY #1 bottle 09/24/18 Unknown Rx Ibuprofen 800 mg PO TID PRN #30 tablet 09/24/18 Unknown Rx diphenhydrAMINE [Benadryl CAP] 25 mg PO Q6HR PRN #30 capsule 09/24/18 Unknown Rx ED Physical Exam - General Limitations: No Limitations General appearance: alert, in no apparent distress - Head Head exam: Present: atraumatic, normocephalic - Eye Eye exam: Present: normal appearance, PERRL, EOMI Pupils: Present: normal accommodation - Expanded ENT Exam Expanded Ear exam: Present: normal external inspection, other (bilat frontal and maxillary sinus pain no swelling no erythema , Nares boggy erythema yellow clear post nasal drip ) TM/Canal exam: Erythema: Right TM, Left TM, Canal Tenderness: Right TM, Left TM Throat exam: Positive: tonsillar erythema, tonsillomegaly, other (uvula midline no stidor no lesion no wheezing ). Negative: tonsillar exudate, R peritonsillar mass, L peritonsillar mass - Neck Neck exam: Present: normal inspection, full ROM. Absent: tenderness, meni ngismus, lymphadenopathy, thyromegaly - Respiratory Respiratory exam: Present: normal lung sounds bilaterally. Absent: respiratory distress, wheezes, stridor, chest wall tenderness - Cardiovascular Cardiovascular Exam: Present: regular rate, normal rhythm, normal heart sounds. Absent: systolic murmur, diastolic murmur, rubs, gallop - GI/Abdominal GI/Abdominal exam: Present: soft, normal bowel sounds. Absent: tenderness, bruit, hernia - Rectal Rectal exam: Present: deferred - Back Exam Back exam: Present: normal inspection, full ROM. Absent: tenderness, CVA tenderness (R), CVA tenderness (L), muscle spasm, rash noted - Neurological Exam Neurological exam: Present: alert, oriented X3, CN II-XII intact, normal gait, reflexes normal - Psychiatric Psychiatric exam: Present: normal affect, normal mood - Skin Skin exam: Present: warm, dry, intact, normal color. Absent: rash ED Course Vital Signs 09/24/18 04:25 Temperature 98.5 F Pulse Rate 105 H Respiratory 18 Rate Blood Pressure 133/79 O2 Sat by Pulse 100 Oximetry ED Medical Decision Making - Medical Decision Making this is sinusitis, plan: augment, flonase, ibuprofen, Benadryl, pt will follow up with pcp in 2-3 days , return to ed if symptom worsen, pt verbalized agreement and under standing of same, pt dc'd to home in stable condition at this time. Symptoms are improved Critical care attestation.: If time is entered above; I have spent that time in minutes in the direct care of this critically ill patient, excluding procedure time. ED Disposition Clinical Impression: Sinusitis Qualifiers: Sinusitis location: maxillary Chronicity: acute Recurrence: recurrent Qualified Code(s): J01.01 - Acute recurrent maxillary sinusitis URI (upper respiratory infection) Qualifiers: URI type: unspecified viral URI Qualified Code(s): J06.9 - Acute upper respiratory infection, unspecified Disposition: DC-01 TO HOME OR SELFCARE Is pt being admited?: No Does the pt Need Aspirin: No Condition: Stable Instructions: Sinusitis (ED), Upper Respiratory Infection (ED) Prescriptions: Amoxicillin/Potassium Clav [Augmentin 875-125 Tablet] 1 each PO BID 10 Days #20 tablet diphenhydrAMINE [Benadryl CAP] 25 mg PO Q6HR PRN #30 capsule PRN Reason: sinus congestion Fluticasone [Flonase] 1 spray NS QDAY #1 bottle Ibuprofen 800 mg PO TID PRN #30 tablet PRN Reason: pain fever Referrals: [facility] [Outside] - 3-5 Days Forms: Work/School Release Form(ED) Time of Disposition: 06:27
== END 2018-09-24 06:30 | disposition home or self-care (01) ==
LOC: ED 04:15
DX: J01.01 Acute recurrent maxillary sinusitis (principal); J06.9 Acute upper respiratory infection, unspecified; I10 Essential (primary) hypertension; K21.9 Gastro-esophageal reflux disease without esophagitis; G43.909 Migraine, unspecified, not intractable, without status migrainosus; M17.0 Bilateral primary osteoarthritis of knee; M19.012 Primary osteoarthritis, left shoulder; M19.011 Primary osteoarthritis, right shoulder; F32.9 Major depressive disorder, single episode, unspecified; Z90.49 Acquired absence of other specified parts of digestive tract; F17.200 Nicotine dependence, unspecified, uncomplicated; Z90.710 Acquired absence of both cervix and uterus
CPT/HCPCS: 99282

== ENCOUNTER 2018-11-04 07:14 | Emergency (ER) | payer OTHER ==
[2018-11-04] MEDS ORDERED: ASPIRIN PO ONE (07:27)
--- NOTE | 2018-11-04 07:46 | XRay Report ---
Chest 2 views: History: Chest pain. Findings: Normal cardiomediastinal silhouette. Trachea is midline. No consolidation, pneumothorax or pleural effusion. Impression: No acute cardiopulmonary findings.
[2018-11-04 07:53] LABS: Basophils # (Auto) 0.1 K/mm3 (0.0-0.1); Basophils % (Auto) 1.2 % (0.0-1.8); Eosinophils # (Auto) 0.5 K/mm3 (0.0-0.4); Eosinophils % (Auto) 4.9 % (0.0-4.3); Hematocrit 42.4 % (30.3-42.9); Hemoglobin 14.2 gm/dl (10.1-14.3); Lymphocytes # (Auto) 3.1 K/mm3 (1.2-5.4); Lymphocytes % (Auto) 33.2 % (13.4-35.0); Mean Corpuscular HGB Conc 33 % (30-34); Mean Corpuscular Volume 81 fl (79-97); Monocytes # (Auto) 0.9 K/mm3 (0.0-0.8); Monocytes % (Auto) 9.7 % (0.0-7.3); Platelet Count 363 K/mm3 (140-440); Red Blood Count 5.21 M/mm3 (3.65-5.03)
[2018-11-04 08:07] LABS: BUN/Creatinine Ratio 10; Blood Urea Nitrogen 9 mg/dL (7-17); Calcium 8.6 mg/dL (8.4-10.2); Hemolysis Index 1
[2018-11-04 08:43] VITALS: BP 132/77
--- NOTE | 2018-11-04 08:46 | Emergency Department Report ---
ED General Adult HPI - General Chief complaint: Chest Pain Stated complaint: CHEST PAIN/BODY ACHE Time Seen by Provider: 11/04/18 08:40 Source: patient Mode of arrival: Ambulatory Limitations: No Limitations - History of Present Illness Initial comments: Ms. Horner is a healthy 48-year-old female with history of hypertension and migraine headache, GERD who presents with cough bodyaches. She thinks she has the flu. Productive cough with yellow sputum. This is her third visit to the ED in 3 months. In August she was prescribed amoxicillin. In September she was prescribed Augmentin. She has been a smoker for the past 15 years. Chest pain only with cough. Denies fever. Positive malaise. Chest pain has been present for several days again only associated with cough. She is followed closely by her PCP. -: Gradual, days(s) (3) Location: chest Severity scale (0 -10): 5 Quality: aching Consistency: intermittent Worsens with: other (cough) Associated Symptoms: cough, malaise, other (body aches) - Related Data Home Medications Medication Instructions Recorded Confirmed Last Taken Losartan Potassium [Cozaar] 100 mg PO DAILY 07/06/17 07/06/17 Unknown Omeprazole 40 mg PO DAILY 07/06/17 07/06/17 Unknown Previous Rx's Medication Instructions Recorded Last Taken Type Ibuprofen 800 mg PO Q8HR #30 tablet 07/08/17 Unknown Rx Amoxicillin [Trimox CAP] 500 mg PO BID #20 capsule 08/17/18 Unknown Rx Fluticasone [Flonase] 1 spray NS QDAY #1 bottle 08/17/18 Unknown Rx predniSONE [Deltasone] 20 mg PO DAILY #5 tablet 08/17/18 Unknown Rx Amoxicillin/Potassium Clav 1 each PO BID 10 Days #20 tablet 09/24/18 Unknown Rx [Augmentin 875-125 Tablet] Fluconazole [Diflucan TAB] 150 mg PO ONCE #1 tablet 09/24/18 Unknown Rx Fluticasone [Flonase] 1 spray NS QDAY #1 bottle 09/24/18 Unknown Rx Ibuprofen 800 mg PO TID PRN #30 tablet 09/24/18 Unknown Rx diphenhydrAMINE [Benadryl CAP] 25 mg PO Q6HR PRN #30 capsule 09/24/18 Unknown Rx Doxycycline [Vibramycin CAP] 100 mg PO Q12HR 7 Days #14 capsule 11/04/18 Unknown Rx Prednisone [predniSONE 10 mg 10 mg PO .TAPER #1 tab.ds.pk 11/04/18 Unknown Rx (6-Day Pack, 21 Tabs)] Allergies Allergy/AdvReac Type Severity Reaction Status Date / Time No Known Allergies Allergy Verified 07/01/17 17:34 ED Review of Systems ROS: Stated complaint: CHEST PAIN/BODY ACHE Other details as noted in HPI Comment: All other systems reviewed and negative Constitutional: malaise Respiratory: cough Cardiovascular: chest pain ED Past Medical Hx - Past Medical History Previous Medical History?: Yes Hx Hypertension: Yes Hx GERD: Yes Hx Sickle Cell Disease: No Hx Arthritis: Yes (hands, shoulders, knees) Hx Headaches / Migraines: Yes (migraines) Hx Psychiatric Treatment: Yes (depression) - Surgical History Hx Cholecystectomy: Yes Additional Surgical History: tubal. hysterectomy 07/19 - Social History Smoking Status: Current Every Day Smoker Substance Use Type: None - Medications Home Medications: Home Medications Medication Instructions Recorded Confirmed Last Taken Type Losartan Potassium [Cozaar] 100 mg PO DAILY 07/06/17 07/06/17 Unknown History Omeprazole 40 mg PO DAILY 07/06/17 07/06/17 Unknown History Ibuprofen 800 mg PO Q8HR #30 tablet 07/08/17 Unknown Rx Amoxicillin [Trimox CAP] 500 mg PO BID #20 capsule 08/17/18 Unknown Rx Fluticasone [Flonase] 1 spray NS QDAY #1 bottle 08/17/18 Unknown Rx predniSONE [Deltasone] 20 mg PO DAILY #5 tablet 08/17/18 Unknown Rx Amoxicillin/Potassium Clav 1 each PO BID 10 Days #20 tablet 09/24/18 Unknown Rx [Augmentin 875-125 Tablet] Fluconazole [Diflucan TAB] 150 mg PO ONCE #1 tablet 09/24/18 Unknown Rx Fluticasone [Flonase] 1 spray NS QDAY #1 bottle 09/24/18 Unknown Rx Ibuprofen 800 mg PO TID PRN #30 tablet 09/24/18 Unknown Rx diphenhydrAMINE [Benadryl CAP] 25 mg PO Q6HR PRN #30 capsule 09/24/18 Unknown Rx Doxycycline [Vibramycin CAP] 100 mg PO Q12HR 7 Days #14 capsule 11/04/18 Unknown Rx Prednisone [predniSONE 10 mg 10 mg PO .TAPER #1 tab.ds.pk 11/04/18 Unknown Rx (6-Day Pack, 21 Tabs)] ED Physical Exam - General Limitations: No Limitations General appearance: alert, in no apparent distress, other (frequent cough hoarse voice) - Head Head exam: Present: atraumatic, normocephalic - Eye Eye exam: Present: normal appearance - ENT ENT exam: Present: mucous membranes moist - Neck Neck exam: Present: normal inspection - Respiratory Respiratory exam: Present: normal lung sounds bilaterally. Absent: respiratory distress, wheezes, rales, rhonchi - Cardiovascular Cardiovascular Exam: Present: regular rate, normal rhythm, normal heart sounds. Absent: systolic murmur, diastolic murmur, rubs, gallop - GI/Abdominal GI/Abdominal exam: Present: soft, normal bowel sounds. Absent: distended, tende rness, guarding, rebound - Extremities Exam Extremities exam: Present: normal inspection - Back Exam Back exam: Present: normal inspection - Neurological Exam Neurological exam: Present: alert, oriented X3 - Psychiatric Psychiatric exam: Present: normal affect, normal mood - Skin Skin exam: Present: warm, dry, intact, normal color. Absent: rash ED Course Vital Signs 11/04/18 11/04/18 07:18 07:27 Temperature 98 F Pulse Rate 88 88 Respiratory 16 16 Rate Blood Pressure 138/78 Blood Pressure 138/78 [Left] O2 Sat by Pulse 100 100 Oximetry ED Medical Decision Making - Lab Data Result diagrams: 11/04/18 07:42 11/04/18 07:42 Laboratory Results - last 24 hr 11/04/18 11/04/18 07:42 07:42 WBC 9.4 RBC 5.21 H Hgb 14.2 Hct 42.4 MCV 81 MCH 27 L MCHC 33 RDW 14.0 Plt Count 363 Lymph % (Auto) 33.2 [place] % (Auto) 9.7 H Eos % (Auto) 4.9 H Baso % (Auto) 1.2 Lymph # 3.1 [place] # 0.9 H Eos # 0.5 H Baso # 0.1 Seg Neutrophils % 51.0 Seg Neutrophils # 4.8 Sodium 140 Potassium 3.7 Chloride 104.4 Carbon Dioxide 24 Anion Gap 15 BUN 9 Creatinine 0.9 Estimated GFR > 60 BUN/Creatinine Ratio 10 Glucose 110 H Calcium 8.6 Troponin T < 0.010 - EKG Data -: EKG Interpreted by Me EKG shows normal: sinus rhythm, axis, intervals, QRS complexes, ST-T waves Rate: normal - Radiology Data AP portable chest radiograph no acute process according to radiology report - Medical Decision Making Mrs. Horner presents with recurrent bronchitis third episode over the last 3 months. She understands that smoking cessation is very important at this juncture. I am concerned for the development of chronic bronchitis. I have encouraged her to follow up with her PCP for medication to help her stop smoking. Prescriptions for doxycycline and prednisone. Critical care attestation.: If time is entered above; I have spent that time in minutes in the direct care of this critically ill patient, excluding procedure time. ED Disposition Clinical Impression: Chronic bronchitis, Tobacco abuse Disposition: DC-01 TO HOME OR SELFCARE Is pt being admited?: No Does the pt Need Aspirin: No Condition: Stable Instructions: Chronic Bronchitis (ED), How to Stop Smoking (ED) Prescriptions: Prednisone [predniSONE 10 mg (6-Day Pack, 21 Tabs)] 10 mg PO .TAPER #1 tab.ds.pk Doxycycline [Vibramycin CAP] 100 mg PO Q12HR 7 Days #14 capsule Referrals: PRIMARY CARE, [Primary Care Provider] - [facility] Forms: Work/School Release Form(ED)
[2018-11-04] MEDS ORDERED: DELTASONE PO ONE (08:47)
[2018-11-04] MEDS ORDERED: VIBRAMYCIN PO ONE (08:47)
== END 2018-11-04 09:32 | disposition home or self-care (01) ==
LOC: ED 07:14
DX: J42 Unspecified chronic bronchitis (principal); I10 Essential (primary) hypertension; K21.9 Gastro-esophageal reflux disease without esophagitis; M19.90 Unspecified osteoarthritis, unspecified site; G43.909 Migraine, unspecified, not intractable, without status migrainosus; F32.9 Major depressive disorder, single episode, unspecified; Z90.49 Acquired absence of other specified parts of digestive tract; F17.200 Nicotine dependence, unspecified, uncomplicated
CPT/HCPCS: 36415; 71046; 80048; 84484; 85025; 93005; 93010; 99284; J7512

== ENCOUNTER 2020-01-18 23:08 | Emergency (ER) | payer SELFPAY | END 2020-01-18 23:50 | disposition left against medical advice (07) | LOC: ED 23:08 | DX: G43.909 Migraine, unspecified, not intractable, without status migrainosus (principal); Z53.21 Procedure and treatment not carried out due to patient leaving prior to being seen by health care provider ==

== ENCOUNTER 2020-05-21 10:21 | Outpatient (CLI) | payer OTHER ==
[2020-05-21 11:19] LABS: Alanine Aminotransferase 125 units/L (7-56); Albumin 4.2 g/dL (3.9-5); BUN/Creatinine Ratio 18; Blood Urea Nitrogen 18 mg/dL (7-17); Calcium 9.5 mg/dL (8.4-10.2); Hemolysis Index 17
[2020-05-21 11:19] LABS: Bilirubin,Urine NEG (Negative); Blood,Urine NEG (Negative); Color,Urine Yellow (Yellow); Mucus,Urine FEW /HPF; Protein,Urine <15 mg/dL mg/dL (Negative); Urobilinogen,Urine < 2.0 mg/dL (<2.0)
[2020-05-22 16:15] LABS: Chol/HDL Ratio 2.36 %; HDL Cholesterol 66 mg/dL (40-59); LDL Cholesterol,Direct 84 mg/dL (50-130)
== END 2020-05-21 10:22 | disposition home or self-care (01) ==
LOC: LAB 10:21
PROVIDERS: ATTEND Internal Medicine
DX: E78.5 Hyperlipidemia, unspecified (principal); I63.9 Cerebral infarction, unspecified; N39.0 Urinary tract infection, site not specified
CPT/HCPCS: 36415; 80053; 80061; 81001; 83036

== ENCOUNTER 2020-07-30 09:13 | Outpatient (CLI) | payer OTHER ==
[2020-07-30 10:28] LABS: Alanine Aminotransferase 34 units/L (7-56); Albumin 3.8 g/dL (3.9-5)
[2020-07-30 10:43] LABS: Bilirubin,Direct < 0.2 mg/dL (0-0.2)
[2020-07-30 13:56] LABS: Hepatitis B Surface Antigen Non-Reactive (Negative); Hepatitis C Virus Antibody Non-Reactive (NonReactive)
== END 2020-07-30 09:14 | disposition home or self-care (01) ==
LOC: LAB 09:13
PROVIDERS: ATTEND Internal Medicine
DX: E78.5 Hyperlipidemia, unspecified (principal)
CPT/HCPCS: 36415; 80074; 80076

== ENCOUNTER 2020-08-08 08:26 | Outpatient (CLI) | payer OTHER ==
[2020-08-08 10:14] LABS: BUN/Creatinine Ratio 13; Blood Urea Nitrogen 13 mg/dL (7-17); Calcium 9.4 mg/dL (8.4-10.2); Hemolysis Index 2
== END 2020-08-08 08:27 | disposition home or self-care (01) ==
LOC: LAB 08:26
PROVIDERS: ATTEND Internal Medicine
DX: Z13.29 Encounter for screening for other suspected endocrine disorder (principal); M31.0 Hypersensitivity angiitis; E78.6 Lipoprotein deficiency
CPT/HCPCS: 36415; 80048; 84443; 85652; 86038; 86140; 86431

== ENCOUNTER 2020-11-19 13:20 | Outpatient (CLI) | payer OTHER ==
--- NOTE | 2020-11-19 14:50 | XRay Report ---
LEFT SHOULDER 3 VIEWS INDICATION: M25.512. COMPARISON: None. IMPRESSION: No acute osseous or soft tissue abnormality. No significant DJD. Signer Name: Fransisco Richard Jr, MD Signed: 11/19/2020 2:46 PM Workstation Name: [id number]
== END 2020-11-19 13:21 | disposition home or self-care (01) ==
LOC: XRAY 13:20
PROVIDERS: ATTEND Orthopaedic Surgery
DX: M25.512 Pain in left shoulder (principal)

== ENCOUNTER 2021-01-24 12:01 | Outpatient (CLI) | payer OTHER ==
[2021-01-24 13:25] LABS: Chol/HDL Ratio 3.87 %
== END 2021-01-24 12:02 | disposition home or self-care (01) ==
LOC: LAB 12:01
PROVIDERS: ATTEND Internal Medicine
DX: E78.5 Hyperlipidemia, unspecified (principal); R73.03 Prediabetes
CPT/HCPCS: 36415; 80061; 83036

== ENCOUNTER 2021-05-03 11:30 | Outpatient (CLI) | payer OTHER ==
[2021-05-03 12:03] LABS: Basophils % (Auto) 0.8 % (0.0-1.8); Eosinophils # (Auto) 0.1 K/mm3 (0.0-0.4); Eosinophils % (Auto) 2.4 % (0.0-4.3); Hematocrit 39.1 % (30.3-42.9); Hemoglobin 13.1 gm/dl (10.1-14.3); Lymphocytes # (Auto) 2.3 K/mm3 (1.2-5.4); Lymphocytes % (Auto) 38.5 % (13.4-35.0); Mean Corpuscular HGB Conc 33 % (30-34); Mean Corpuscular Volume 82 fl (79-97); Monocytes # (Auto) 0.7 K/mm3 (0.0-0.8); Monocytes % (Auto) 12.1 % (0.0-7.3); Platelet Count 337 K/mm3 (140-440); Red Blood Count 4.76 M/mm3 (3.65-5.03); Red Cell Distribution Width 14.1 % (13.2-15.2)
[2021-05-03 12:19] LABS: Alanine Aminotransferase 46 units/L (7-56); Albumin 4.2 g/dL (3.9-5); BUN/Creatinine Ratio 20; Blood Urea Nitrogen 18 mg/dL (7-17); Calcium 9.4 mg/dL (8.4-10.2); Chol/HDL Ratio 2.88 %; HDL Cholesterol 44 mg/dL (40-59); Hemolysis Index 10; LDL Cholesterol,Direct 74 mg/dL (50-130)
[2021-05-06 12:34] LABS: Vitamin D, 25-OH, D2 <4 ng/mL
== END 2021-05-03 11:31 | disposition home or self-care (01) ==
LOC: LAB 11:30
PROVIDERS: ATTEND Internal Medicine
DX: Z13.29 Encounter for screening for other suspected endocrine disorder (principal); Z00.00 Encounter for general adult medical examination without abnormal findings; R73.03 Prediabetes; E78.5 Hyperlipidemia, unspecified; I63.9 Cerebral infarction, unspecified; E55.9 Vitamin D deficiency, unspecified
CPT/HCPCS: 36415; 80053; 80061; 82306; 83036; 85025

== ENCOUNTER 2021-09-09 10:45 | Outpatient (CLI) | payer OTHER ==
[2021-09-09 11:26] LABS: Chol/HDL Ratio 3.13 %
== END 2021-09-09 10:46 | disposition home or self-care (01) ==
LOC: LAB 10:45
PROVIDERS: ATTEND Internal Medicine
DX: E78.5 Hyperlipidemia, unspecified (principal); R73.03 Prediabetes
CPT/HCPCS: 36415; 80061; 83036